=== PATIENT | male | born 1985 | race Caucasian/White ===

== ENCOUNTER 2021-02-17 11:46 | Emergency (ER) | payer BC ==
[~2021-02-17] VITALS: Ht 177.8 cm; Wt 122.7 kg
[2021-02-17 12:04] VITALS: BP 160/95
== END 2021-02-17 13:22 | disposition home or self-care (01) ==
LOC: ER 11:47
DX: J06.9 Acute upper respiratory infection, unspecified (principal); Z20.822 Contact with and (suspected) exposure to COVID-19; R09.81 Nasal congestion; Z88.0 Allergy status to penicillin
CPT/HCPCS: 36415; 99283; U0003; U0005